=== PATIENT | female | born 1985 | race Caucasian/White ===

== ENCOUNTER → 2021-04-02 13:49 | Outpatient (CLI) | payer BC, SELFPAY ==
--- NOTE | ~2021-04-02 | MR_ITS ---
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 Sequences included coronal T2-weighted SS-FSE, coronal and axial FS 2D-F IESTA, axial STIR FSE, axial T2-weighted SS-FSE, axial T2-weighted FS SS-FSE, axial diffusion-weighte d SE, axial dual-echo T1-weighted FSPGR, and axial and coronal T1-weighted LAVA. Postcontrast axial T 1-weighted LAVA images were obtained in a time course. Postcontrast coronal T1-weighted LAVA images w ere obtained. COMPARISON: None. FINDINGS: Heart size is normal. No pericardial or pleural effusion. Liver, gallbladder, pancreas, bilateral adr enal glands and left kidney are normal. Nonenhancing 1.5 cm complex right renal cyst. Anteriorly the cyst is T2 hyperintense, T1 hypointense with posteriorly layering region of increased T1 and decrease d T2 signal which could represent blood or proteinaceous fluid. No peripherally enhancing wall or enh ancing nodular soft tissue component. Visualized portion of the bowels are normal with no dilation to suggest obstruction. No pathologically enlarged abdominal lymphadenopathy. Normal bone marrow signal throughout. IMPRESSION: 1. Benign nonenhancing 1.5 cm complex right renal cyst with posterior layering blood or proteinaceous fluid. Reviewed, dictated and finalized at location A. NDING PHYSICIAN
[2021-04-02 14:16] LABS: Estimated Glomerular Filt Rate > 60
== END ==
PROVIDERS: Visit Provider Urology
DX: N28.1 Cyst of kidney, acquired (principal)
CPT/HCPCS: 74183; A9577

== ENCOUNTER → 2022-04-01 15:51 | Outpatient (CLI) | payer BC, SELFPAY ==
--- NOTE | ~2022-04-01 | US_ITS ---
EXAMINATION: US OB transvaginal DATE: 04/01/2022 16:34 INDICATION: Supervision of with history of infertility. Uncertain dates. TECHNIQUE: Real-time transvaginal pelvic ultrasound was performed. COMPARISON: None. FINDINGS: The uterus measures 6.0 x 3.9 x 4.7 cm. There is an intrauterine gestational sac with mean diameter o f 5 mm. The size is too small for dating with this machine. A yolk sac is identified. No pole i s visualized. The right ovary measures 2.1 x 1.3 x 1.1 cm. The left ovary measures 3.4 x 1.8 x 1.8 cm . There is no free fluid in the pelvis. IMPRESSION: 1. Single early intrauterine gestation. Reviewed, dictated and finalized at location A. [employer] PSYCHOLOGIST
== END ==
DX: O09.00 Supervision of pregnancy with history of infertility, unspecified trimester (principal)
CPT/HCPCS: 76817

== ENCOUNTER → 2022-04-16 08:15 | Outpatient (CLI) | payer BC, SELFPAY ==
--- NOTE | ~2022-04-16 | US_ITS ---
EXAMINATION: US OB transvaginal DATE: 04/16/2022 08:47 INDICATION: viability assessment during first trimester TECHNIQUE: Real-time pelvic transabdominal and transvaginal ultrasound was performed. COMPARISON: 04/01/2022 FINDINGS: The uterus measures 7.0 x 4.8 x 5.8 cm. There is an intrauterine gestational sac. A yolk s ac is identified. cardiac motion is not identified. The crown rump length measures 3 mm, which correlates with an estimated gestational age of 5 weeks and 6 day(s) (+/-) 4 day(s). The right ovary measures 2.2 x 1.2 x 1.9 cm. The left ovary measures 2.3 x 1.6 x 2.1 cm. There is nor mal vascular flow in the ovaries. There is no free fluid in the pelvis. IMPRESSION: 1. Intrauterine without detectable heart tones. Patient reports having viable pregnan cy demonstrated by ultrasound at outside hospital last week however, that study is not currently avai lable for verification. Based on information from this examination alone, a 3 mm pole with abse nt cardiac activity is suspicious for, but not diagnostic of, failure. Reviewed, dictated and finalized at location B. [employer] IMPRESSION: 1. Intrauterine without detectable heart tones. Patient reports having viable demonstrated by ultrasound at outside hospital last we ek however, that study is not currently available for verification. Based on in formation from this examination alone, a 3 mm pole with absent cardiac ac tivity is suspicious for, but not diagnostic of, failure.
== END ==
DX: O09.00 Supervision of pregnancy with history of infertility, unspecified trimester (principal)
CPT/HCPCS: 76817

== ENCOUNTER → 2022-12-14 07:30 | Outpatient (CLI) | payer BC, SELFPAY ==
--- NOTE | ~2022-12-14 | MR_ITS ---
MRI of the lumbar spine Clinical History: Radiculopathy Technique: Axial T2-weighted images, and sagittal T1-weighted, T2-weighted, and and T2 fat-sat images were acquired. Findings: There is no fracture or sublocation of the lumbar spine. Vertebral bodies maintain normal h eight and alignment. No suspicious bone marrow signal abnormality seen. At L1-L2, there is no disc bulge or herniation. There is mild facet arthropathy. No central canal elio nosis or neural foraminal narrowing. At L2-L3, there is no disc bulge or herniation. There is minimal facet joint hypertrophy. No central canal stenosis or neural foraminal narrowing. At L3-L4, there is no significant disc bulge or herniation. There is minimal facet joint hypertrophy. No central canal stenosis or neural foraminal narrowing. At L4-L5, there is minimal disc bulge and mild facet arthropathy. No central canal stenosis or neural foraminal narrowing. At L5-S1, there is minimal disc bulge and tiny annular fissure. There is moderate facet arthropathy. No central canal stenosis or neural foraminal narrowing. Paravertebral soft tissues are unremarkable. Impression: Minimal degenerative spondylosis, as above. Reviewed, dictated and finalized at [facility]. Impression: Minimal degenerative spondylosis, as above.
== END ==
DX: M47.26 Other spondylosis with radiculopathy, lumbar region (principal)
CPT/HCPCS: 72148